=== PATIENT | female | born 1960 ===

== ENCOUNTER 2016-06-06 16:55 | Emergency (ER) | payer OTHER ==
--- NOTE | 2016-06-06 18:10 | DIAGNOSTIC IMAGING REPORT ---
PROCEDURE: CT HEAD WITHOUT CONTRAST INDICATION: TRAUMA/INJURY TECHNIQUE: Noncontrast axial images with sagittal and coronal reformations. COMPARISON: None. FINDINGS: There is extracranial soft tissue injury over the left anterior temporal region. Brain and ventricles are normal. No evidence of an acute process or hemorrhage. Sinuses and mastoids are normal. IMPRESSION: 1. Extracranial soft tissue injury over the left anterior temporal region. 2. No evidence of intracranial injury. 3. Findings called to emergency department for KATI Banks. All CT scans at this facility use dose modulation, iterative reconstruction, and/or weight-based dosing when appropriate to reduce radiation dose to as low as reasonably achievable.
--- NOTE | 2016-06-06 18:18 | ED ORDER SUMMARY ---
..... Patient: FRANKLIN BARBOZA OrderSheet [facility] VisitID: [id number] [address] [place] [address] 55y, F Registration Date/Time: 06/06/2016 ORDER SHEET Weight: 544.3 kg (stated) Allergies: No Known Drug Allergy GENERAL ORDERS: CT Head wo Cont Urgent (17:15 06/06/2016 EKoroleva P.A.-C) (17:38 Nelson) EKG - ER Stat (17:16 06/06/2016 EKoroleva P.A.-C) (17:25 Nelson) MEDICATION ORDERS: Tylenol PO 650 mg (NOW) (18:14 06/06/2016 EKoroleva P.A.-C) (Ack 18:17 DDean R.N.) (22:02 DDean R.N.) Zofran ODT PO 4 mg (NOW) (18:14 06/06/2016 EKoroleva P.A.-C) (Ack 18:17 DDean R.N.) (22:03 DDean R.N.) IV FLUIDS: ORDER SHEET NOTES: [Electronically signed by Steph BarrosAConchita-C (18:58 06/06/2016)] [Electronically signed by Diandra Chery R.N. (22:04 06/06/2016)] [Electronically locked/signed by Diandra Chery R.N. (22:04 06/06/2016)]
--- NOTE | 2016-06-06 18:18 | ED ORDER SUMMARY ---
..... Patient: FRANKLIN BARBOZA OrderSheet [facility] VisitID: [id number] [address] [place] [address] 55y, F Registration Date/Time: 06/06/2016 ORDER SHEET Weight: 544.3 kg (stated) Allergies: No Known Drug Allergy GENERAL ORDERS: CT Head wo Cont Urgent (17:15 06/06/2016 EKoroleva P.A.-C) (17:38 Nelson) EKG - ER Stat (17:16 06/06/2016 EKoroleva P.A.-C) (17:25 Nelson) MEDICATION ORDERS: Tylenol PO 650 mg (NOW) (18:14 06/06/2016 EKoroleva P.A.-C) (Ack 18:17 DDean R.N.) (22:02 DDean R.N.) Zofran ODT PO 4 mg (NOW) (18:14 06/06/2016 EKoroleva P.A.-C) (Ack 18:17 DDean R.N.) (22:03 DDean R.N.) IV FLUIDS: ORDER SHEET NOTES: [Electronically signed by Steph BarrosAConchita-C (18:58 06/06/2016)] [Electronically signed by Diandra Chery R.N. (22:04 06/06/2016)] [Electronically locked/signed by Diandra Chery R.N. (22:04 06/06/2016)]
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
--- NOTE | 2016-06-06 22:04 | ED DISCHARGE INSTRUCTIONS ---
Patient: FRANKLIN BARBOZA General Instructions [facility] VisitID: [id number] [place] [address] 55y, F Registration Date/Time: 06/06/2016 Major closed head injury. Concussion. Loss of consciousness of unknown duration. Confusion. Hypertension. Single superficial abrasion. Deep laceration to forehead. Fall. INSTRUCTIONS Protect wound and keep wound area clean. Apply bacitracin twice daily. Sutures/beulah should be removed in seven days. Do not work for five days. Prescription Medications: Zofran (orally disintegrating tablets) 4 mg: take 1 orally every 6 hours for 3 days as needed for nausea. No refill. Substitution is permissible. OTC Medications: Acetaminophen (available over the counter): take according to label instructions. Follow-up: Follow up with your doctor and for head injury in eight days for wound check. Understanding of the discharge instructions verbalized. ADDITIONAL INFORMATION Mechanical Fall You have had a fall today. It appears that the cause is mechanical. That means that you slipped, tripped or lost your balance. If your fall had been due to fainting or a seizure, further tests would be required. Home Care: Rest today and resume your normal activities when you are feeling back to normal. If you were injured during the fall, follow the advice from your doctor regarding care of your injury. You may use acetaminophen (Tylenol) or ibuprofen (Motrin, Advil) to control pain, unless another pain medicine was prescribed. [NOTE: If you have chronic liver or kidney disease or ever had a stomach ulcer or GI bleeding, talk with your doctor before using these medicines.] Fall Prevention: Was there anything that caused your fall that can be fixed, removed, or replaced? Make your home safe by keeping walkways clear of objects you may trip over. Use non-slip pads under rugs. Do not walk in poorly lit areas. Do not stand on chairs or wobbly ladders. Use caution when reaching overhead or looking upward. This position can cause a loss of balance. Be sure your shoes fit properly, have non-slip bottoms and are in good condition. Be cautious when going up and down curbs, and walking on uneven sidewalks. If your balance is poor, consider using a cane or walker. Stay as active as you can. Balance, flexibility, strength, and endurance all come from exercise. They all play a role in preventing falls. Follow Up with your doctor or as advised by our staff. Get Prompt Medical Attention if any of the following occur: Repeated mechanical falls, or unexplained falls Dizziness, fainting or seizure Severe headache Chest pain or shortness of breath Palpitations (very rapid or very slow or irregular heartbeat) Blood in vomit, stools (black or red color) Weakness of an arm or leg or one side of the face Difficulty with speech or vision Abrasions Abrasions are skin scrapes. Their treatment depends on how large and deep the abrasion is. Home Care: If you were given a bandage, change it once a day. If your bandage sticks to the wound, soak it in warm water until it loosens. Wash the area with soap and water to remove all the cream/ointment. You may do this in a sink, under a tub faucet or shower. Rinse off the soap and pat dry with a clean towel. Reapply cream/ointment according to your doctor's instructions. This will prevent infection and help prevent the bandage from sticking. Cover the wound with a fresh non-stick bandage (Telfa). Repeat steps 1 to 4 daily, or as directed by your doctor. If the bandage becomes wet or dirty, change it as soon as possible. You may use acetaminophen (Tylenol) or ibuprofen (Motrin, Advil) to control pain, unless another pain medicine was prescribed. [ NOTE : If you have chronic liver or kidney disease or ever had a stomach ulcer or GI bleeding, talk with your doctor before using these medicines.] Do not use ibuprofen in children under six months of age. Follow Up with your physician or this facility as directed by our staff. Most skin wounds heal within ten days. However, an infection may occur despite proper treatment. Therefore, look for the early signs of infection listed below. Get Prompt Medical Attention if any of the following occur: Increasing pain in the wound Increasing redness or swelling Pus coming from the wound Fever of 100.4F (38C) or higher, or as directed by your healthcare provider Head Injury, No Wake-Up (Adult) You have had a head injury. It does not appear serious at this time. Symptoms of a more serious problem (concussion, bruising, or bleeding in the brain) may appear later. Therefore, watch for the WARNING SIGNS listed below. Home Care: Your healthcare provider will tell you whether its okay to drive. If so, you can drive yourself home. For the next day or so, be careful when driving or using heavy machinery until you are sure you have no delayed symptoms. During the next 24 hours someone must stay with you to check for the signs below. It is not necessary to stay awake or be awakened during the night. If you have swelling of the face or scalp, apply an ice pack (ice cubes in a plastic bag, wrapped in a towel) for 20 minutes. Do this every 1-2 hours until the swelling starts to go down. Do not use aspirin or ibuprofen (Motrin, Advil) after a head injury.You may use acetaminophen (Tylenol)to control pain, unless another pain medicine was prescribed. [NOTE: If you have chronic liver or kidney disease or ever had a stomach ulcer or GI bleeding, talk with your doctor before using these medicines.] For the next 24 hours: Do not take alcohol, sedatives or medicines that make you sleepy. Avoid strenuous activities. No lifting or straining. If you have had any symptoms of a concussion today (nausea, vomiting, dizziness, confusion, headache, memory loss or if you were knocked out), do not return to sports or any activity that could result in another head injury until all symptoms are gone and you have been cleared by your doctor. A second head injury before fully recovering from the first one can lead to serious brain injury. Follow Up with your doctor if symptoms are not improving after 24 hours, or as directed. [NOTE: A radiologist will review any X-rays or CT scans that were taken. We will notify you of any new findings that may affect your care.] Get Prompt Medical Attention if any of the followingWARNING SIGNS occur: Repeated vomiting Severe or worsening headache or dizziness Unusual drowsiness, or unable to awaken as usual Confusion or change in behavior or speech, memory loss, blurred vision Convulsion (seizure) Increasing scalp or face swelling Redness, warmth or pus from the swollen area Fluid drainage or bleeding from the nose or ears Concussion (No Wake-Up) A concussion happens when you hit your head with enough force to shake up the brain. This may cause you to lose consciousness be "knocked out" - but not always. Depending on how hard you hit your head, it will take from a few hours up to a few days to get better. Sometimes symptoms may last a few months or longer. This is called post-concussion syndrome. At first, you may have a headache, nausea, vomiting, or dizziness. You may also have problems concentrating or remembering things. This is normal. Symptoms should get better as the hours and days go by. Symptoms that get worse could be a sign of a more serious injury. This might be a bruise or bleeding in the brain. Thats why its important to watch for the warning signs listed below. Home care Follow these tips to help care for yourself at home: During the next day (24 hours) someone must stay with you to check for the signs below. If your face or scalp swells, apply an ice pack for 20 minutes every 1 to 2 hours. Do this until the swelling starts to go down. You can make an ice pack by putting ice cubes in a plastic bag and wrapping the bag in a towel. for 20 minutes every 1-2 hours until the swelling starts to go down. You may use acetaminophen to control pain, unless another pain medicine was prescribed. If you have chronic liver or kidney disease, talk with your doctor before using these medicines. Also talk with your doctor if you ever had a stomach ulcer or GI bleeding. For the next 24 hours: Dont drink alcohol or take sedatives or medicines that make you sleepy. Dont drive or operate machinery. Avoid doing anything strenuous. Dont lift or strain. Dont return to sports or any activity that could cause you to hit your head until all symptoms are gone and you have been cleared by your doctor. A second head injury before fully recovering from the first one can lead to serious brain injury. Follow-up care Follow up with your doctor in 1 week, or as directed. Note: A radiologist will review any X-rays or CT scans that were taken. You will be told of any new findings that may affect your care. When to seek medical care Get prompt medical attention if any of these occur: Repeated vomiting Headache or dizziness that is severe or gets worse Unusual drowsiness, or unable to wake up as usual Confusion or change in behavior or speech, or memory loss Blurred vision Convulsion (seizure) Swelling on the scalp or face that gets worse Redness, warmth, or pus from the swollen area Fluid draining from or bleeding from the nose or ears Laceration, Face (Suture Or Tape) Alaceration is a cut through the skin. This will require stitches if it is deep. Minor cuts may be treated with surgical tape. Home care The following guidelines will help you care for your laceration at home: If a bandage was applied and it becomes wet or dirty, replace it. Otherwise, leave it in place for the first 24 hours, then change it once a day or as directed. If sutures were used, clean the wound daily: After removing the bandage, wash the area with soap and water. Use a wet cotton swab to loosen and remove any blood or crust that forms. After cleaning, keep the wound clean and dry. Talk with your doctor before applying any antibiotic ointment to the wound. Reapply a fresh bandage. You may remove the bandage to shower as usual after the first 24 hours, but do not soak the area in water (no swimming) until the sutures are removed. If surgical tape was used, keep the area clean and dry. If it becomes wet, blot it dry with a towel. The doctor may prescribe an antibiotic cream or ointment to prevent infection. Do not stop taking this medication until you have have finished the prescribed course or the doctor tells you to stop. The doctor may also prescribe medications for pain. Follow the doctor's instructions for taking these medications.If you have chronic liver or kidney disease or ever had a stomach ulcer or GI bleeding, talk with your doctor before using these medicines. Follow-up care Follow up with your health care provider. Most facial cuts heal in five days with no problem. However, even with proper treatment, a wound infection sometimes occurs. Therefore, check the wound daily for the warning signs listed below. Stitches should not be left in the face for more thanfivedays; otherwise, permanent stitch valentino may form. If surgical tape closures were used, you may remove them yourself afterfivedays, if they have not fallen off by then. When to seek medical care Get prompt medical attention if any of these occur: Increasing pain in the wound Redness, swelling, or pus coming from the wound If sutures come apart or fall out before 5 days If the surgical tape closures fall off before 5 days, or the wound edges reopen Fever of 100.4F (38C) or higher, or as directed by your health care provider Bleeding not controlled by direct pressure Ondansetron Hydrochloride Oral tablet What is this medicine? ONDANSETRON (on TERRA se rajat) is used to treat nausea and vomiting caused by chemotherapy. It is also used to prevent or treat nausea and vomiting after surgery. How should I use this medicine? Take this medicine by mouth with a glass of water. Follow the directions on your prescription label. Take your doses at regular intervals. Do not take your medicine more often than directed. Talk to your conveyor line battery charger regarding the use of this medicine in children. Special care may be needed. What side effects may I notice from receiving this medicine? Side effects that you should report to your doctor or health housekeeper caregiver as soon as possible: allergic reactions like skin rash, itching or hives, swelling of the face, lips or tongue breathing problems dizziness fast or irregular heartbeat feeling faint or lightheaded, falls fever and chills swelling of the hands or feet tightness in the chest Side effects that usually do not require medical attention (report to your doctor or health housekeeper caregiver if they continue or are bothersome): constipation or diarrhea headache What may interact with this medicine? Do not take this medicine with any of the following medications: -apomorphine -cisapride -dofetilide -dronedarone -pimozide -thioridazine -ziprasidone This medicine may also interact with the following medications: -carbamazepine -phenytoin -rifampicin -tramadol -other medicines that prolong the QT interval (cause an abnormal heart rhythm) What if I miss a dose? If you miss a dose, take it as soon as you can. If it is almost time for your next dose, take only that dose. Do not take double or extra doses. Where should I keep my medicine? Keep out of the reach of children. Store between 2 and 30 degrees C (36 and 86 degrees F). Throw away any unused medicine after the expiration date. What should I tell my health care provider before I take this medicine? They need to know if you have any of these conditions: heart disease history of irregular heartbeat liver disease low levels of magnesium or potassium in the blood an unusual or allergic reaction to ondansetron, granisetron, other medicines, foods, dyes, or preservatives or trying to get breast-feeding What should I watch for while using this medicine? Check with your doctor or health housekeeper caregiver right away if you have any sign of an allergic reaction. You have been given the following additional information: Fall, Mechanical Abrasion HEAD INJURY, No Wake-Up (Adult) Concussion, No Wake-Up Laceration, Face (Suture Or Tape) Ondansetron Hydrochloride Oral tablet Do not work for five days. (Electronically signed by Steph Barros P.A.-C 06/06/2016 18:58)
--- NOTE | 2016-06-06 22:04 | ED MAR SUMMARY ---
..... Medication Administration Record [facility] [address] [place] [address] Patient: FRANKLIN BARBOZA Visit ID: [id number] 55y, F Weight: 544.3 kg Height/Length: 62 in BMI: 219.7 ALLERGIES: No Known Drug Allergy Given 18:06/06/2016 Diandra Chery, R.N. Medication Administered: TYLENOL [PO] (ACETAMINOPHEN), Dose: 650 mg Tablets PO. Medication Ordered: Tylenol PO 650 mg (NOW). Given 18:16 06/06/2016 Diandra Chery, R.N. Medication Administered: ZOFRAN ODT [PO] (ONDANSETRON), Dose: 4 mg Tablets PO. Medication Ordered: Zofran ODT PO 4 mg (NOW).
--- NOTE | 2016-06-06 22:04 | ED MED RECONCILIATION SUMMARY ---
Patient: FRANKLIN BARBOZA Medication Reconciliation Report [facility] VisitID: [id number] [address] [place] [address] 55y, F Registration Date/Time: 06/06/2016 Weight: 544.3 kg Height/Length: 62 in. BMI: 219.7 ALLERGIES: No Known Drug Allergy The patient's Home Medications are listed below: THE FOLLOWING MEDICATIONS NEED TO BE RECONCILED: Ginkoba Oral Multivitamin Oral The source(s) of the original Home Medication information: Not obtained. The following Medications were given to the patient in the Emergency Department: Tylenol [PO] PO 650 mg, administered: 06/06/2016 6:16:00 PM Zofran ODT [PO] PO 4 mg, administered: 06/06/2016 6:16:00 PM The following Medications were prescribed to the patient: Acetaminophen (available over the counter): take according to label instructions. -- Steph Barros P.AConchita-Jessica Zofran (orally disintegrating tablets) 4 mg: take 1 orally every 6 hours for 3 days as needed for nausea. No refill. Substitution is permissible. -- Steph Barros P.AConchita-C
--- NOTE | 2016-06-06 22:04 | ED MAR SUMMARY ---
..... Medication Administration Record [facility] [address] [place] [address] Patient: FRANKLIN BARBOZA Visit ID: [id number] 55y, F Weight: 544.3 kg Height/Length: 62 in BMI: 219.7 ALLERGIES: No Known Drug Allergy Given 18:06/06/2016 Diandra Chery, R.N. Medication Administered: TYLENOL [PO] (ACETAMINOPHEN), Dose: 650 mg Tablets PO. Medication Ordered: Tylenol PO 650 mg (NOW). Given 18:16 06/06/2016 Diandra Chery, R.N. Medication Administered: ZOFRAN ODT [PO] (ONDANSETRON), Dose: 4 mg Tablets PO. Medication Ordered: Zofran ODT PO 4 mg (NOW).
--- NOTE | 2016-06-06 22:04 | ED MED RECONCILIATION SUMMARY ---
Patient: FRANKLIN BARBOZA Medication Reconciliation Report [facility] VisitID: [id number] [address] [place] [address] 55y, F Registration Date/Time: 06/06/2016 Weight: 544.3 kg Height/Length: 62 in. BMI: 219.7 ALLERGIES: No Known Drug Allergy The patient's Home Medications are listed below: THE FOLLOWING MEDICATIONS NEED TO BE RECONCILED: Ginkoba Oral Multivitamin Oral The source(s) of the original Home Medication information: Not obtained. The following Medications were given to the patient in the Emergency Department: Tylenol [PO] PO 650 mg, administered: 06/06/2016 6:16:00 PM Zofran ODT [PO] PO 4 mg, administered: 06/06/2016 6:16:00 PM The following Medications were prescribed to the patient: Acetaminophen (available over the counter): take according to label instructions. -- Steph Barros P.AConchita-Jessica Zofran (orally disintegrating tablets) 4 mg: take 1 orally every 6 hours for 3 days as needed for nausea. No refill. Substitution is permissible. -- Steph Barros P.AConchita-C
== END 2016-06-06 18:38 | disposition home or self-care (01) ==
LOC: ED SRH 16:55
DX: S06.0X9A Concussion with loss of consciousness of unspecified duration, initial encounter (principal); S01.81XA Laceration without foreign body of other part of head, initial encounter; R41.0 Disorientation, unspecified; I10 Essential (primary) hypertension; V18.0XXA Pedal cycle driver injured in noncollision transport accident in nontraffic accident, initial encounter; Y93.55 Activity, bike riding; Y92.85 Railroad track as the place of occurrence of the external cause; Y99.9 Unspecified external cause status